=== PATIENT | male | born 1995 | race Caucasian/White ===

== ENCOUNTER → 2016-09-16 00:18 | Emergency (ER) | payer OTHER ==
[2016-09-16 03:55] VITALS: BP 123/73
--- NOTE | 2016-09-16 15:34 | ED ---
Laceration/Wound HPI - HPI Summary HPI Summary: Patient presents to ED with small .5cm superficial laceration to the right little finger. He states he was playing a drinking game with a knife, it slipped and cut his finger at the base of the MCP joint. Denies numbness, tingling, color or temperature changes. Denies pain. He takes no blood thinners and is otherwise heatlhy. He denies other complaints at this time. - History of Current Complaint Stated Complaint: RT HAND LAC Time Seen by Provider: 09/16/16 02:02 Hx Obtained From: Patient Mechanism of Injury: Sharp/Blunt Trauma Onset/Duration: Sudden Onset Aggravating: Movement Timing: Constant Onset Severity: Mild Current Severity: Mild Pain Intensity: 3 Pain Scale Used: 0-10 Numeric Associated Signs & Symptoms: Negative Related Hx: Dominant Hand (Right) - Allergy/Home Medications Allergies/Adverse Reactions: Allergies Allergy/AdvReac Type Severity Reaction Status Date / Time No Known Allergies Allergy Verified 08/11/15 16:53 PMH/Surg Hx/FS Hx/Imm Hx Previously Healthy: Yes Endocrine/Hematology History: Denies: Hx Diabetes Psychiatric History: Reports: Hx Depression - Immunization History Date of Tetanus Vaccine: unsure Date of Influenza Vaccine: unsure Infectious Disease History: No Infectious Disease History: Denies: Traveled Outside the [place] in Last 30 Days - Family History Known Family History: Positive: None - Social History Occupation: Unemployed Lives: With Family Alcohol Use: Weekly Hx Substance Use: Yes Substance Use Type: Reports: Marijuana Substance Use Comment - Amount & Last Used: uses occasionally; states last used "a couple of days ago" Hx Tobacco Use: No Smoking Status (MU): Never Smoked Tobacco Review of Systems Constitutional: Negative Eyes: Negative Cardiovascular: Negative Respiratory: Negative Genitourinary: Negative Positive: no symptoms reported, see HPI Positive: Other - small .5 cm laceration to the little finger of left hand Neurological: Negative Psychological: Normal All Other Systems Reviewed And Are Negative: Yes Physical Exam Triage Information Reviewed: Yes Vital Signs On Initial Exam: Initial Vitals Temp Pulse Resp BP Pulse Ox 99 F 99 18 130/92 98 09/16/16 00:27 09/16/16 00:27 09/16/16 00:27 09/16/16 00:27 09/16/16 00:27 Vital Signs Reviewed: Yes Appearance: Positive: Well-Appearing, Well-Nourished Skin: Positive: Warm, Skin Color Reflects Adequate Perfusion, Other - .5cm laceration to MCP joint of little finger on palmar side of left hand Eyes: Positive: EOMI, KARELY, Conjunctiva Clear Neck: Positive: Supple, No Lymphadenopathy Respiratory/Lung Sounds: Positive: Clear to Auscultation, Breath Sounds Present Cardiovascular: Positive: Normal Musculoskeletal: Positive: Normal, Strength/ROM Intact Neurological: Positive: Sensory/Motor Intact, Speech Normal Psychiatric: Positive: Normal AVPU Assessment: Alert Procedures - Laceration/Wound Repair 1 Location: upper extremity Description: Linear Betadine Prep?: No Laceration/Wound Explored: clean Closure: SteriStrips Diagnostics - Vital Signs Vital Signs Temp Pulse Resp BP Pulse Ox 09/16/16 03:51 98.6 F 82 18 123/73 09/16/16 02:25 98.4 F 82 18 162/85 96 09/16/16 00:27 99 F 99 18 130/92 98 - Laboratory Lab Statement: Any lab studies that have been ordered have been reviewed, and results considered in the medical decision making process. Laceration Repair Course/Dx - Course Course Of Treatment: Wound was superficial and did not appropriate together upon manipulation. 3 steri strips placed with gauze and compression dressing. Patient tolerated well and given return precautions. - Differential Dx Differental Diagnoses: Avulsion, Laceration, Tendon Laceration - Clinical Impression Provider Diagnoses: Laceration Discharge - Discharge Plan Condition: Stable Disposition: HOME Patient Education Materials: Steristrips (ED) Referrals: No Primary Care Phys,NOPCP [Primary Care Provider] - Additional Instructions: If you develop signs of infection such as drainage, redness, warmth around the area or you develop a fever, come back to ED
== END | disposition home or self-care (01) ==
LOC: ED 00:18
DX: S61.216A Laceration without foreign body of right little finger without damage to nail, initial encounter (principal); W26.0XXA Contact with knife, initial encounter; Y93.9 Activity, unspecified; Y92.9 Unspecified place or not applicable
CPT/HCPCS: 99281